=== PATIENT | male | born 1960 | race African-American/Black ===

== ENCOUNTER 2016-11-28 00:32 | Observation (INO) ==
[2016-11-28] MEDS ORDERED: MORPHINE IM ONE (01:35)
[2016-11-28] MEDS ORDERED: ZOFRAN IV ONE (01:35)
[2016-11-28] MEDS ORDERED: NS 2,000 ML IV ONE (01:35)
[2016-11-28 02:20] LABS: MANUAL DIFF NEEDED? NO
[2016-11-28 02:22] LABS: BASO% 0.1 % (0.0-0.8); EOS# 0.01 X1000 (0.0-0.7); EOS% 0.1 % (0.0-10.0); HEMATOCRIT 41.1 % (42.0-52.0); HEMOGLOBIN 13.3 g/dL (14.0-18.0); IMM GRAN# 0.01 X1000 (0.0-0.04); IMM GRAN% 0.1 % (0.0-0.5); LYMPH# 1.15 X1000 (1.2-3.4); MCH 30.2 PG (27-31); MCHC 32.4 g/dL (33-37); MCV 93.4 FL (81-99); MONO# 0.55 X1000 (0.11-0.59); MONO% 7.6 % (1.7-9.3); MPV 10.1 FL (7.4-10.4); NEUT% 76.1 % (42.2-75.2); PLT 237 X1000 (130-400)
[2016-11-28 02:48] LABS: AGAP 9; ALBUMIN 4.4 g/dL (3.5-5.0); ALKALINE PHOSPHATASE 58 U/L (32-122); AMYLASE 174 U/L (20-200); BUN 16 mg/dL (8-22); CHLORIDE 107 mmol/L (98-107); COSMO 284; GOT 20 U/L (10-34); GPT 21 U/L (10-44); LIPASE 110 U/L (13-60); POTASSIUM 4.2 mmol/L (3.5-5.1); SODIUM 142 mmol/L (136-145); TCO2 26 mmol/L (25-35); TOTAL PROTEIN 7.7 g/dL (6.3-8.3)
[2016-11-28] MEDS ORDERED: NS 1,000 ML IV ONE (04:49)
[2016-11-28] MEDS ORDERED: PNEUMOVAX 23 IM ONE (06:33)
[2016-11-28] MEDS: NS 1,000 ML IV SCH ×2 (06:38→17:56)
--- NOTE | 2016-11-28 11:33 | Diag Imaging Result Doc PS360 ---
EXAM: CT ABD/PELVIS W/ IV CONT ONLY HISTORY: pancreatitis, N/V TECHNIQUE: Routine CT scan of the abdomen and pelvis with IV contrast. Dose reduction technique. COMPARISON: None. FINDINGS: The pancreas enhances normally. There are no focal masses or peripancreatic inflammatory changes. Splenic vein is patent. There is left lower lobe atelectasis or infiltrate. No effusion is appreciated. Spleen is small measuring 6 x 7 cm. The duodenum is dilated and there is evidence of malrotation the small bowel located entirely within the right abdomen. There is ingested material within a mildly distended gastric fundus. The gastric antrum is not distended. A volvulus involving the descending duodenum cannot be excluded. The distal small bowel loops are nondilated. The colon is nondilated. The cecum is located to the left of midline and the appendix is within the left mid abdomen with no evidence for acute appendicitis. There is no free fluid or free air. There is diverticulosis. There is no evidence for diverticulitis. There is a 1 cm hypodensity left kidney. Findings were discussed with the floor nurse to states the patient has tolerated breakfast well no abdominal pain, nausea, or vomiting. 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 Volvulus cannot be excluded in the appropriate clinical setting. Correlate clinically. 2.Left-sided cecum and appendix.. 3.No evidence for pancreatitis by CT. 4.Small spleen. 5.Left lower lobe atelectasis or infiltrate. Electronically signed by Bethany Conn 11/28/2016 11:31 AM
--- NOTE | 2016-11-28 17:06 | Diag Imaging Result Doc PS360 ---
EXAM: GI/SW/SM BOWEL HISTORY: ?volvulus TECHNIQUE: Single contrast upper GI series and small bowel follow-through. By five COMPARISON: Recent CT 11/28/2016 FINDINGS: The patient initiated swallowing without difficulty. There is a hiatal hernia. No gastroesophageal reflux was observed. There is deformity and scarring of the pylorus and duodenal bulb suggestive of prior peptic ulcer disease. 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 The third and fourth portion of the duodenum remain in the right abdomen. The the post bulbar duodenum demonstrates fold thickening and areas of dilatation. A large duodenal diverticulum cannot be excluded. There may be mild partial obstruction. There is no evidence for high-grade obstruction or volvulus. The cecum and terminal ileum are located within the left mid abdomen. 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 Majority of the small bowel is within the right abdomen and the cecum and terminal ileum are within the left abdomen. 2.No evidence for volvulus or high-grade obstruction. 3.Deformity of the pylorus and duodenal bulb suggestive of chronic peptic ulcer disease. Endoscopy could be considered. 4.Abnormal appearance of the post bulbar duodenum with transient dilated regions and thickened folds. Findings may indicate duodenitis or mild partial obstruction. A giant duodenal diverticulum is not excluded. Correlate clinically. 5.Hiatal hernia. Electronically signed by Bethany Conn 11/28/2016 5:04 PM
[2016-11-28] MEDS: PRILOSEC PO SCH (18:46)
[2016-11-29] MEDS: NS 1,000 ML IV SCH (01:59)
[2016-11-29] MEDS: PRILOSEC PO SCH (06:10)
[2016-11-29 06:38] LABS: AGAP 7; ALBUMIN 3.5 g/dL (3.5-5.0); ALKALINE PHOSPHATASE 48 U/L (32-122); BUN 16 mg/dL (8-22); CALCIUM 7.9 mg/dL (8.8-10.2); CHLORIDE 109 mmol/L (98-107); COSMO 280; GOT 17 U/L (10-34); GPT 15 U/L (10-44); LIPASE 49 U/L (13-60); POTASSIUM 3.4 mmol/L (3.5-5.1); SODIUM 140 mmol/L (136-145); TCO2 24 mmol/L (25-35); TOTAL PROTEIN 6.1 g/dL (6.3-8.3)
[2016-11-29 08:18] VITALS: BP 136/82
== END 2016-11-29 12:15 | disposition home or self-care (01) ==
LOC: P.ED 00:32 → P.MEDSURG 00:32
PROVIDERS: ADMIT Family Medicine; ATTEND Family Medicine